=== PATIENT | female | born 2005 | race Two or more races ===

== ENCOUNTER 2025-04-06 16:42 | Emergency (ER) | payer SELFPAY ==
[~2025-04-06] VITALS: Ht 167.6 cm; Wt 69.0 kg
[2025-04-06] MEDS ORDERED: CEFAZOLIN 1000MG PREMIX 50 ML IV ONE (17:00)
[2025-04-06] MEDS ORDERED: MORPHINE SULFATE 2 MG/ML INJ (NOT FOR IM USE) IV ONE (17:00)
[2025-04-06 17:08] VITALS: TEMP 36.4; O2SAT 100
[2025-04-06] MEDS: MORPHINE SULFATE 4 MG/ML INJ (FOR IV/IM USE) IV SCH (17:15)
[2025-04-06 17:32] LABS: BASOPHILS % 0.3 % (0.0-2.0); EOSINOPHILS % 1.9 % (0.0-5.0); HEMATOCRIT. 39.0 % (36.0-48.0); HEMOGLOBIN. 12.9 g/dL (12.0-16.0); LYMPHOCYTES % 21.9 % (20.0-50.0); MEAN PLATELET VOLUME 8.1 fl (7.4-10.4); MONOCYTES % 5.3 % (2.0-8.0); NEUTROPHILS % 70.6 % (40.0-76.0); PLATELET 247 x1000/uL (130-400); RED BLOOD CELL COUNT 4.44 mill/uL (4.2-5.4); RED CELL DISTRIBUTION WIDTH 13.4 % (11.6-14.6)
[2025-04-06 17:47] LABS: CREATININE 0.7 mg/dL (0.6-1.0); UREA NITROGEN BLOOD 5 mg/dL (9-23)
[2025-04-06 17:51] VITALS: BP 124/82; PULSE 102; RESP 15; O2SAT 100
[2025-04-06] MEDS: KETAMINE HCL 50 MG/ML 10ML IV STA (18:00)
== END 2025-04-06 18:20 | disposition short-term general hospital (02) ==
LOC: ER 17:40
DX: S93.04XA Dislocation of right ankle joint, initial encounter (principal); Z79.899 Other long term (current) drug therapy; Z98.890 Other specified postprocedural states; W17.89XA Other fall from one level to another, initial encounter; Y93.89 Activity, other specified; Y92.89 Other specified places as the place of occurrence of the external cause; Y99.8 Other external cause status
CPT/HCPCS: 80048; 83880; 85025; 85730; 86850; 86900; 86901; 36415; 73610; 94664; 27840; 96374; 99152; 99291; J3490; J2270; Z7610; J0690